=== PATIENT | female | born 1970 | race Hispanic/Latino ===

== ENCOUNTER 2018-08-19 08:10 | Emergency (ER) | payer SELFPAY ==
[~2018-08-19] VITALS: Ht 167.6 cm; Wt 101.0 kg
[~2018-08-19 08:10] MED LIST: NAPROSYN500 MG PO
[2018-08-19 08:37] LABS: HEMATOCRIT 41.8 % (37.0-47.0); HEMOGLOBIN 13.9 g/dl (12.0-16.0); IMMATURE GRANULOCYTES 0.6 % (0.0-5.0); MEAN CELL VOLUME 84.6 fL CALC (80.0-100.0); MEAN CORPUSCULAR HGB 28.1 pG CALC (26.0-32.0); MEAN CORPUSCULAR HGB CONC 33.3 g/L CALC (32.0-36.0); NEUT# 9.97 thou/uL (2.00-7.15); RED BLOOD COUNT 4.94 mill/uL (4.20-5.60)
[2018-08-19 08:50] LABS: ALKALINE PHOSPHATASE 114 u/l (38-126); BILIRUBIN, TOTAL 0.8 mg/dL (0.0-1.4); BUN 15 mg/dL (7-17); BUN/CREATININE RATIO 18 (12-20 (CALC)); CHLORIDE 105 mmol/l (95-108); CREATININE 0.8 mg/dL (0.5-1.0); GFR > 60 ML/MIN (>=60 (CALC)); GFR FOR AFR.AMER. > 60 ML/MIN (>=60 (CALC)); LIPASE 495 u/l (23-300); SGOT/AST 39 u/l (14-36); SODIUM 138 mmol/l (137-146); TOTAL PROTEIN 8.7 g/dL (6.3-8.2)
[2018-08-19 08:51] LABS: ALBUMIN 4.5 g/dL (3.2-5.0); ANION GAP 15 (6-22 (CALC)); CARBON DIOXIDE 22 mmol/l (22-30); POTASSIUM 4.2 mmol/l (3.5-5.1)
[2018-08-19 14:46] LABS: URINE BILIRUBIN - DIPSTICK NEGATIVE (NEGATIVE); URINE BLOOD DIPSTICK TRACE-INTACT (NEGATIVE); URINE COLOR YELLOW; URINE GLUCOSE - DIPSTICK 100 mg/dL (NEGATIVE); URINE KETONE NEGATIVE (NEGATIVE); URINE LEUK ESTERASE NEGATIVE (NEGATIVE); URINE PROTEIN - DIPSTICK NEGATIVE (NEG-TRACE); URINE UROBILINOGEN - DIPSTICK 0.2 E.U./dL (0.2)
[2018-08-19 14:48] LABS: URINE BACTERIA MODERATE hpf; URINE NITRITE - DIPSTICK POSITIVE (Negative); URINE RBC 0-2 RBC/hpf (0-5); URINE SQUAMOUS EPITHELIAL CELL FEW EPI/hpf (0-FEW); URINE WBC 0-2 WBC/hpf (0-5)
[2018-08-19 14:49] LABS: BARBITURATES NEGATIVE (NEGATIVE); COCAINE NEGATIVE (NEGATIVE); METHADONE NEGATIVE (NEGATIVE); TETRAHYDROCANNABIONOL NEGATIVE (NEGATIVE); TRICYLIC ANTIDEPRESSANTS NEGATIVE (NEGATIVE)
[2018-08-19 14:50] LABS: OXCYCODONE NEGATIVE (NEGATIVE)
[2018-08-19 15:15] VITALS: BP 159/90
== END 2018-08-19 15:16 | disposition short-term general hospital (02) | DRG 391 ==
LOC: ED 08:10
PROVIDERS: Emergency Medicine
DX: R19.09 Other intra-abdominal and pelvic swelling, mass and lump (principal); K85.90 Acute pancreatitis without necrosis or infection, unspecified; E87.2 Acidosis; K80.20 Calculus of gallbladder without cholecystitis without obstruction; N13.9 Obstructive and reflux uropathy, unspecified; E11.9 Type 2 diabetes mellitus without complications
CPT/HCPCS: Q9967

== ENCOUNTER 2024-01-01 09:45 | Observation (INO) | payer OTHER ==
[~2024-01-01] VITALS: Ht 167.6 cm; Wt 109.2 kg
[2024-01-01] VITALS (27 sets, daily range): BP systolic 105–151; BP diastolic 61–100
[2024-01-01 10:31] LABS: URINE BILIRUBIN - DIPSTICK Negative (NEGATIVE); URINE BLOOD DIPSTICK Negative (NEGATIVE); URINE GLUCOSE - DIPSTICK >=1000 mg/dL (NEGATIVE); URINE KETONE Negative (NEGATIVE); URINE LEUK ESTERASE Negative (NEGATIVE); URINE NITRITE - DIPSTICK Negative (Negative); URINE PH 6.5 (4.5-8.0); URINE PROTEIN - DIPSTICK Negative (NEG-TRACE); URINE UROBILINOGEN - DIPSTICK 0.2 E.U./dL (0.2)
[2024-01-01 10:32] LABS: URINE COLOR Yellow
[2024-01-01 10:36] LABS: ALBUMIN 4.4 g/dL (3.2-5.0); ALKALINE PHOSPHATASE 116 u/l (38-126); ANION GAP 11 (6-22 (CALC)); BASO% 0.7 % (0-3); BILIRUBIN, TOTAL 0.9 mg/dL (0.02-1.3); BUN 14 mg/dL (7-17); BUN/CREATININE RATIO 19 (12-20 (CALC)); CARBON DIOXIDE 23 mmol/l (22-30); CHLORIDE 107 mmol/l (95-108); CREATININE 0.8 mg/dL (0.5-1.0); EOS% 1.8 % (0-8); ESTIMATED GFR 89 ML/MIN (>=90 (CALC)); HDL CHOLESTEROL 55 mg/dL (39.0-59.0); HEMATOCRIT 47.1 % (37.0-47.0); HEMOGLOBIN 15.7 g/dl (12.0-16.0); IMMATURE GRANULOCYTES 0.1 % (0.0-5.0); MEAN CELL VOLUME 87.4 fL CALC (80.0-100.0); MEAN CORPUSCULAR HGB 29.1 pG CALC (26.0-32.0); MEAN CORPUSCULAR HGB CONC 33.3 g/dL CAL (32.0-36.0); NEUT# 4.31 thou/uL (2.00-7.15); NEUT% 59.4 % (42-76); POTASSIUM 4.4 mmol/l (3.5-5.1); RED BLOOD COUNT 5.39 mill/uL (4.20-5.60); SODIUM 137 mmol/l (137-146); TOTAL PROTEIN 8.6 g/dL (6.3-8.2)
[2024-01-01 10:37] LABS: CHOLESTEROL HDL RATIO 4.6 (<4.4 (CALC)); SGOT/AST 86 u/l (14-36); TOTAL CHOLESTEROL 253 mg/dl (0-199); TOTAL TRIGLYCERIDES 472 mg/dl (0-149)
[2024-01-01 11:04] LABS: PROTHROMBIN TIME 9.8 SECONDS (9.0-12.5)
[2024-01-01] MEDS ORDERED: ASPIRIN 81 MG/TAB PO ONE (11:50)
[2024-01-01] MEDS ORDERED: DEXTROSE 250 ML IV PRN (14:05)
[2024-01-01] MEDS ORDERED: MAGNESIUM HYDROXIDE 30 ML UDC PO PRN (14:05)
[2024-01-01] MEDS ORDERED: ACETAMINOPHEN 325 MG/TAB PO PRN (14:05)
[2024-01-01] MEDS ORDERED: LANTUS SOL100 UNIT/M SC (15:31)
[2024-01-01] MEDS ORDERED: JARDIANCE25 MG PO (15:33)
[2024-01-01] MEDS ORDERED: NOVOLOG MIX100 U/ML SC (15:33)
[2024-01-01] MEDS ORDERED: CRESTOR40 MG PO (15:34)
[2024-01-01] MEDS ORDERED: CRESTOR20 MG PO (15:34)
[2024-01-01] MEDS ORDERED: PROTONIX40 M2 PO (15:35)
[2024-01-01] MEDS ORDERED: INSULIN LISPRO 100 UNITS/ML ML SC SCH (17:00)
[2024-01-01] MEDS ORDERED: ENOXAPARIN SODIUM 40 MG/0.4 ML SYR SC SCH (21:00)
[2024-01-01] MEDS ORDERED: INSULIN DETEMIR 100 UNITS/ML SC SCH (21:00)
[2024-01-01] MEDS ORDERED: ATORVASTATIN CALCIUM 40 MG/TAB PO SCH (21:00)
[2024-01-02 03:17] VITALS: BP 101/61
[2024-01-02 04:37] VITALS: BP 101/61
[2024-01-02 06:24] LABS: BASO% 0.9 % (0-3); HEMOGLOBIN 14.8 g/dl (12.0-16.0); LYMPH% 38.7 % (15-41); MEAN CELL VOLUME 88.4 fL CALC (80.0-100.0); MEAN CORPUSCULAR HGB 31.2 pG CALC (26.0-32.0); MEAN CORPUSCULAR HGB CONC 35.2 g/dL CAL (32.0-36.0); MONO% 7.1 % (2-13); NEUT# 2.76 thou/uL (2.00-7.15); NEUT% 51.3 % (42-76); RED BLOOD COUNT 4.75 mill/uL (4.20-5.60)
[2024-01-02 06:38] LABS: ALBUMIN 3.6 g/dL (3.2-5.0); BILIRUBIN, TOTAL 0.9 mg/dL (0.02-1.3); CREATININE 0.9 mg/dL (0.5-1.0); POTASSIUM 4.5 mmol/l (3.5-5.1); TOTAL PROTEIN 7.6 g/dL (6.3-8.2)
[2024-01-02 07:18] VITALS: BP 139/96
[2024-01-02] MEDS ORDERED: ASPIRIN EC 81 MG/TAB PO SCH (09:00)
[2024-01-02] MEDS ORDERED: PANTOPRAZOLE SODIUM Sesquihydr 40 MG/TAB PO SCH (09:00)
[2024-01-02] MEDS ORDERED: METFORMIN HCL500 M1 PO (09:16)
[2024-01-02] MEDS ORDERED: NEURONTIN100 MG PO (09:16)
[2024-01-02 10:27] VITALS: BP 105/65
== END 2024-01-02 13:26 | disposition home or self-care (01) | DRG 313 ==
LOC: ED 09:45 → ED-I 13:20 → ED 13:41 → MS2 13:42
PROVIDERS: Family Medicine; Nurse Practitioner Family; ADMIT Internal Medicine; ATTEND Internal Medicine
DX: R07.9 Chest pain, unspecified (principal); R20.2 Paresthesia of skin; R20.0 Anesthesia of skin; E11.65 Type 2 diabetes mellitus with hyperglycemia; E78.5 Hyperlipidemia, unspecified; E66.01 Morbid (severe) obesity due to excess calories; Z68.38 Body mass index [BMI] 38.0-38.9, adult; Z79.4 Long term (current) use of insulin; Z79.84 Long term (current) use of oral hypoglycemic drugs
CPT/HCPCS: G0378; J1650

== ENCOUNTER → 2024-05-05 | Day surgery (SDC) | payer OTHER ==
[~2024-05-05] VITALS: Ht 170.2 cm; Wt 108.9 kg
[~2024-05-05] MED LIST changes: +CRESTOR20 MG PO; +CRESTOR40 MG PO; +FAMOTIDINE 10MG/ML 2ML SDV IV ONE; +FERROUS SULFAT325 MG PO; +FISH OIL1000 M2 PO; +GLIPIZIDE10 M3 PO; +GLYCOPYRROLATE 0.2 MG/ML IV ONE; +JARDIANCE25 MG PO; +LANTUS SOL100 UNIT/M SC; +LIDOCAINE HCL 2% 2ML SDV IV ONE; +MECLIZINE25 MG PO; +METFORMIN HCL500 M1 PO; +NEURONTIN100 MG PO; +NOVOLIN N100 UNIT; +NOVOLOG MIX100 U/ML SC; +PROPOFOL 200 MG/20 ML VIAL IV ONE; +PROTONIX40 M2 PO; +SODIUM CHLORIDE 0.9% 1,000 ML IV ONE; +VITAMIN C500 M6 PO
[2024-05-05 10:40] VITALS: BP 114/83
== END | disposition home or self-care (01) | DRG 951 ==
LOC: ENDO 08:57
PROVIDERS: ATTEND Surgery
PROC: 0DBP8ZX Excision of Rectum, Via Natural or Artificial Opening Endoscopic, Diagnostic (ICD-10-PCS; principal; 2024-05-05)
DX: Z12.11 Encounter for screening for malignant neoplasm of colon (principal); D12.8 Benign neoplasm of rectum; K64.4 Residual hemorrhoidal skin tags; I10 Essential (primary) hypertension; E11.9 Type 2 diabetes mellitus without complications; E66.9 Obesity, unspecified
CPT/HCPCS: J1596